=== PATIENT | male | born 1980 | race African-American/Black ===

== ENCOUNTER 2019-07-16 11:24 | Emergency (ER) | payer MEDICAID ==
[~2019-07-16] VITALS: Ht 185.4 cm; Wt 81.8 kg
[2019-07-16 11:38] VITALS: Ht 185.4 cm; Wt 81.8 kg
[2019-07-16 12:32] LABS: BASOPHILS 0.7 % (0-2); EOSINOPHILS 7.4 % (0-7); HEMATOCRIT 41.5 % (42.0-54.0); HEMOGLOBIN 14.4 g/dL (13.5-17.5); IMMATURE GRANULOCYTES 0.2 % (0-5); LYMPHOCYTES 32.8 % (15-50); MCH 31.1 pg (26.0-34.0); MCHC 34.7 g/dL (31.0-37.0); MCV 89.6 fL (80.0-100.0); MEAN PLATELET VOLUME 8.6 fL (7.4-10.4); NEUTROPHILS 43.9 % (40-80); PLATELET COUNT 197 10x3/uL (130-400); RBC 4.63 10x6/uL (4.20-6.10); RDW 13.1 % (11.5-14.5); WBC 4.5 10x3/uL (4.8-10.8)
[2019-07-16 12:48] LABS: ALBUMIN 3.9 g/dL (3.4-5.0); ALKALINE PHOSPHATASE 111 U/L (46-116); ALT (SGPT) 37 U/L (10-68); BILIRUBIN - TOTAL 0.81 mg/dL (0.2-1.3); CALC OSMOLALITY 279 mosm/kg (275-300); CARBON DIOXIDE 29.4 mmol/L (21.0-32.0); CHLORIDE - SERUM 104 mmol/L (98-107); CREATININE - SERUM 0.8 mg/dL (0.6-1.3); GLUCOSE 107 mg/dL (74-106); POTASSIUM - SERUM 4.1 mmol/L (3.5-5.1); PROTEIN - SERUM 7.5 g/dL (6.4-8.2); SODIUM 141 mmol/L (136-145); UREA NITROGEN 9 mg/dL (7-18); eGFR NON AFRICAN AMERICAN > 90 mL/min (90-120)
[2019-07-16 12:50] LABS: CALCIUM 8.7 mg/dL (8.5-10.1)
[2019-07-16 12:51] LABS: AMYLASE - SERUM 69 U/L (25-115); LIPASE 109 U/L (73-393); TROPONIN-I 0.031 ng/mL (0.000-0.060)
[2019-07-16 13:03] LABS: APPEARANCE CLEAR (CLEAR); BILIRUBIN NEGATIVE (NEGATIVE); COLOR YELLOW (YELLOW); GLUCOSE NEGATIVE (NEGATIVE); KETONE SMALL mg/dL (NEGATIVE); NITRITE NEGATIVE (NEGATIVE); PROTEIN NEGATIVE (NEGATIVE); SPECIFIC GRAVITY 1.015 (1.005-1.020); UROBILINOGEN NORMAL (NORMAL)
[2019-07-16 13:53] VITALS: BP 126/76
[2019-07-16] MEDS ORDERED: ZOFRAN ODT4 MG/UDTAB PO (15:40)
[2019-07-16] MEDS ORDERED: ACETAMINOPHEN500 M1 PO (15:40)
[2019-07-16] MEDS ORDERED: IBUPROFEN800 MG PO (15:40)
[2019-07-16] MEDS ORDERED: CYCLOBENZAPRINE10 MG PO (15:40)
== END 2019-07-16 16:39 | disposition home or self-care (01) ==
LOC: D.ER 11:24
PROVIDERS: Family Medicine
DX: R10.9 Unspecified abdominal pain (principal); R53.82 Chronic fatigue, unspecified

== ENCOUNTER 2019-09-24 18:17 | Emergency (ER) | payer MEDICAID ==
[~2019-09-24] VITALS: Ht 185.4 cm; Wt 81.8 kg
[~2019-09-24 18:17] MED LIST: ACETAMINOPHEN500 M1 PO; CYCLOBENZAPRINE10 MG PO; IBUPROFEN800 MG PO; ZOFRAN ODT4 MG/UDTAB PO
[2019-09-24 18:18] VITALS: Ht 185.4 cm; Wt 81.8 kg
[2019-09-24 18:49] LABS: BASOPHILS 0.4 % (0-2); EOSINOPHILS 3.7 % (0-7); HEMATOCRIT 38.3 % (42.0-54.0); HEMOGLOBIN 13.1 g/dL (13.5-17.5); IMMATURE GRANULOCYTES 0.1 % (0-5); LYMPHOCYTES 40.5 % (15-50); MCH 31.4 pg (26.0-34.0); MCHC 34.2 g/dL (31.0-37.0); MCV 91.8 fL (80.0-100.0); MEAN PLATELET VOLUME 8.8 fL (7.4-10.4); MONOCYTES 10.5 % (2-11); NEUTROPHILS 44.8 % (40-80); PLATELET COUNT 180 10x3/uL (130-400); RBC 4.17 10x6/uL (4.20-6.10); RDW 12.2 % (11.5-14.5); WBC 7.6 10x3/uL (4.8-10.8)
[2019-09-24 18:57] LABS: CALC OSMOLALITY 273 mosm/kg (275-300); CALCIUM 8.1 mg/dL (8.5-10.1); CARBON DIOXIDE 25.2 mmol/L (21.0-32.0); CHLORIDE - SERUM 102 mmol/L (98-107); CREATININE - SERUM 0.9 mg/dL (0.6-1.3); GLUCOSE 86 mg/dL (74-106); POTASSIUM - SERUM 3.3 mmol/L (3.5-5.1); SODIUM 138 mmol/L (136-145); UREA NITROGEN 11 mg/dL (7-18); eGFR NON AFRICAN AMERICAN > 90 mL/min (90-120)
[2019-09-24 19:04] LABS: ALBUMIN 3.4 g/dL (3.4-5.0); ALKALINE PHOSPHATASE 92 U/L (46-116); ALT (SGPT) 24 U/L (10-68); BILIRUBIN - TOTAL 0.33 mg/dL (0.2-1.3); PROTEIN - SERUM 6.5 g/dL (6.4-8.2)
[2019-09-24 19:31] VITALS: BP 113/69
== END 2019-09-24 20:45 | disposition home or self-care (01) ==
LOC: D.ER 18:17
PROVIDERS: Emergency Medicine
DX: F12.90 Cannabis use, unspecified, uncomplicated (principal); E87.6 Hypokalemia